=== PATIENT | male | born 1945 | race Caucasian/White ===

== ENCOUNTER 2016-09-25 12:13 | Emergency (ER) | payer MEDICARE, OTHER ==
[2016-09-25 12:19] VITALS: BP 168/82
[2016-09-25] MEDS ORDERED: CEPHALEXIN 250 MG CAPSULE PO STA (12:38)
[2016-09-25] MEDS ORDERED: TETANUS/DIPHTHERIA/PERTUSSIS 0.5 ML SYRINGE IM ONE ×2 (12:39→12:41)
[2016-09-25] MEDS ORDERED: CEPHALEXIN 250 MG CAPSULE PO ONE (12:41)
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
== END 2016-09-25 12:57 | disposition home or self-care (01) ==
LOC: ED 12:13
DX: L03.116 Cellulitis of left lower limb (principal); S80.812A Abrasion, left lower leg, initial encounter; V18.2XXA Unspecified pedal cyclist injured in noncollision transport accident in nontraffic accident, initial encounter; Z23 Encounter for immunization; R03.0 Elevated blood-pressure reading, without diagnosis of hypertension; Z79.82 Long term (current) use of aspirin
CPT/HCPCS: 90471; 90715; 99283; A9270

== ENCOUNTER 2016-09-27 11:28 | Emergency (ER) | payer MEDICARE, OTHER ==
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
[2016-09-27 13:15] VITALS: BP 151/95
--- NOTE | 2016-09-27 17:08 | Ultrasound Report ---
LEFT LEG VENOUS DUPLEX: 09/27/2016 CLINICAL INDICATION: Leg swelling after injury. TECHNIQUE: Real-time sonographic vascular imaging was performed by the bowling pin setters installer through the left lower extremity utilizing both color flow and Doppler spectral analysis. Multiple hardware supplies sales representative sta tic images were saved for review. FINDINGS: A left lower extremity venous sonogram is performed revealing the common femoral, superfic ial femoral, profunda femoris, and popliteal veins to be adequately visualized without intraluminal d efects. There is normal venous compression, augmentation, phasicity, and spontaneity of venous flow. In the calf, the visualized more cephalad portions of posterior tibial and peroneal veins are gross ly compressible, without filling defects. Scanning of the anterior calf in the region of swelling de monstrates a 5.7 x 4.4 x 0.8 cm hematoma. IMPRESSION: NO EVIDENCE OF DEEP VENOUS THROMBOSIS. JOB #: [id number] EXT JOB #:[id number]
== END 2016-09-27 13:35 | disposition home or self-care (01) ==
LOC: ED 11:28
DX: S80.12XD Contusion of left lower leg, subsequent encounter (principal); W22.8XXD Striking against or struck by other objects, subsequent encounter; M79.89 Other specified soft tissue disorders; Z85.46 Personal history of malignant neoplasm of prostate; Z90.79 Acquired absence of other genital organ(s); Z79.82 Long term (current) use of aspirin
CPT/HCPCS: 99283

== ENCOUNTER 2023-06-22 13:53 | Outpatient (CLI) | payer MEDICARE ==
[2023-06-22 15:36] LABS: CALCIUM 9.5 mg/dL (8.5-10.3); POTASSIUM 4.1 mmol/L (3.5-4.5)
== END 2023-06-22 13:54 | disposition home or self-care (01) ==
LOC: LAB 13:53
PROVIDERS: ATTEND Student in an Organized Health Care Education/Training Program
DX: I49.9 Cardiac arrhythmia, unspecified (principal)
CPT/HCPCS: 36415; 80048

== ENCOUNTER 2023-09-27 07:38 | Emergency (ER) | payer MEDICARE ==
--- NOTE | 2023-09-27 08:14 | ED Physician Documentation ---
PD HPI URI - Stated complaint Stated Complaint: COUGH,FEVERISH,CONGESTION - Chief complaint Chief Complaint: Resp - History obtained from History obtained from: Patient - Additional information Additional information: Patient is a 78-year-old male with a history of hypertension presenting for evaluation of 1 week of productive cough of white sputum. Patient reports feeling a lot of congestion in his nose. His cough is worse at night. He denies fever. No chest pain or shortness of air or abdominal symptoms. Denies recent travel or known sick contacts. He has tried an [id number] cough m edication without any significant improvement. He has not taken a COVID test. Review of Systems Constitutional: denies: Fever Nose: reports: Congestion Cardiac: denies: Chest pain / pressure Respiratory: reports: Cough. denies: Dyspnea GI: denies: Abdominal Pain PD PAST MEDICAL HISTORY - Past Medical History Past Medical History: Yes Cardiovascular: Hypertension Respiratory: None Neuro: Peripheral neuropathy Endocrine/Autoimmune: None GI: GERD, Diverticulitis : Other HEENT: None Psych: None Musculoskeletal: Osteoarthritis Derm: None Other Past Medical History: prostate cancer - Past Surgical History Past Surgical History: Yes General: Bowel surgery, Other Ortho: Knee replacement - Present Medications Home Medications: Ambulatory Orders Medication Instructions Recorded Confirmed Atorvastatin Calcium 40 mg PO DAILY 09/27/23 09/27/23 Azelastine HCl 137 mcg NS BID 09/27/23 09/27/23 Fluoxetine HCl [Prozac] 20 mg PO DAILY 09/27/23 09/27/23 Loratadine [Claritin] 10 mg PO DAILY 09/27/23 09/27/23 [place]-3/Dha/Epa/Fish Oil [Fish Oil 1 each PO DAILY 09/27/23 09/27/23 1,000 mg Softgel] Omeprazole 20 mg PO BID 09/27/23 09/27/23 Pregabalin [Lyrica] 25 mg PO HS 09/27/23 09/27/23 Pregabalin [Lyrica] 150 mg PO BID 09/27/23 09/27/23 Psyllium [Metamucil] 1 packet PO TID 09/27/23 09/27/23 Telmisartan 80 mg PO DAILY 09/27/23 09/27/23 amLODIPine [Norvasc] 5 mg PO DAILY 09/27/23 09/27/23 guaiFENesin/CODEINE [Robitussin AC] 5 ml PO Q6H PRN #100 ml 09/27/23 hydroCHLOROthiazide [Hydrodiuril] 25 mg PO DAILY 09/27/23 09/27/23 - Allergies Allergies/Adverse Reactions: Allergies Allergy/AdvReac Type Severity Reaction Status Date / Time No Known Drug Allergies Allergy Verified 09/27/23 07:42 - Social History Does the pt smoke?: No Smoking Status: Former smoker Does the pt drink ETOH?: No Does the pt have substance abuse?: No - Immunizations Immunizations are current?: Yes PD ED PE NORMAL - General General: Alert and oriented X 3, No acute distress, Well developed/nourished - HEENT HEENT: Atraumatic, Moist mucous membranes, Pharynx benign - Neck Neck: Supple, no meningeal sign - Cardiac Cardiac: RRR, Strong equal pulses - Respiratory Respiratory: No respiratory distress, Clear bilaterally - Abdomen Abdomen: Soft, Non tender, Non distended - Derm Derm: Warm and dry - Neuro Neuro: Normal speech Results - Vitals Vitals: Vital Signs - 24 hr 09/27/23 09/27/23 07:43 08:58 Temperature 36.4 C L 36.4 C L Heart Rate 61 55 L Respiratory 18 16 Rate Blood Pressure 152/84 H 115/71 O2 Saturation 97 95 Oxygen O2 Source Room air - Labs Labs: Laboratory Tests 09/27/23 07:56 Nasal Adenovirus (PCR) NOT DETECTED Nasal B. parapertussis DNA (PCR) NOT DETECTED Nasal Coronavir 229E PCR NOT DETECTED Nasal Coronavir HKU1 PCR NOT DETECTED Nasal Coronavir NL63 PCR NOT DETECTED Nasal Coronavir OC43 PCR NOT DETECTED Nasal Enterovir/Rhinovir PCR DETECTED A Nasal Influenza B PCR NOT DETECTED Nasal Influenza A PCR NOT DETECTED Nasal Parainfluen 1 PCR NOT DETECTED Nasal Parainfluen 2 PCR NOT DETECTED Nasal Parainfluen 3 PCR NOT DETECTED Nasal Parainfluen 4 PCR NOT DETECTED Nasal RSV (PCR) NOT DETECTED Nasal B.pertussis DNA PCR NOT DETECTED Nasal C.pneumoniae (PCR) NOT DETECTED Iván Human Metapneumo PCR NOT DETECTED Nasal M.pneumoniae (PCR) NOT DETECTED Nasal SARS-CoV-2 (PCR) NOT DETECTED PD Medical Decision Making - ED course Complexity details: reviewed results, d/w patient ED course: Patient presenting with cough and congestion for the past 1 week. Vital signs are stable. Lung sounds are clear. Chest x-ray which I reviewed is negative for pneumonia. Patient counseled that his symptoms are likely viral in nature and we discussed options for treatment including cough medication as well as saline spray in the nose to help loosen congestion. Respiratory swab was obtained and it did result positive for rhinovirus. Patient is otherwise well- appearing and counseled on concerning symptoms to return for. Departure - Departure Disposition: 01 Home, Self Care Clinical Impression: Upper respiratory infection Condition: Stable Instructions: ED Viral Syndrome Prescriptions: guaiFENesin/CODEINE [Robitussin AC] 5 ml PO Q6H PRN #100 ml PRN Reason: Cough Comments: Your respiratory panel is pending. This will check for COVID, influenza, RSV and a number of other common cold viruses. We will notify you if it is positive for COVID. Otherwise you can check the patient portal for your results. You should quarantine from others until you know your COVID result. Please continue with acetaminophen or ibuprofen as needed for fevers and body aches, plenty of fluids/hydration and rest. Return to the ER with any worsening symptoms such as difficulty breathing or vomiting. Your chest x-ray does not show signs of pneumonia. I would recommend using [id number] saline sprays in the nose to help loose n congestion as this will likely help your cough. I also sent a cough medication to the [facility] pharmacy. This does contain codeine which can make you feel sleepy or drowsy so I would not recommend driving while taking this medication. Forms: PCP List Discharge Date/Time: 09/27/23 08:59
--- NOTE | 2023-09-27 08:22 | XRAY Report ---
PROCEDURE: Chest 2V INDICATIONS: cough 1 week TECHNIQUE: 2 views of the chest were acquired. COMPARISON: None. FINDINGS: Surgical changes and devices: None. Lungs and pleura: No pleural effusions or pneumothorax. Lungs are clear. Mediastinum: Mediastinal contours appear normal. Heart size is normal. Bones and chest wall: No suspicious bony lesions. Overlying soft tissues appear unremarkable. IMPRESSION: No acute cardiopulmonary process. Reviewed by: Tyler Spain MD on 09/27/2023 8:20 AM PDT Approved by: Tyler Spain MD on 09/27/2023 8:20 AM PDT Station ID: [id number]
[2023-09-27 08:58] LABS: B. PARAPERTUSSIS- RESP PCR PAN NOT DETECTED; B. PERTUSSIS- RESP PCR PANEL NOT DETECTED; C. PNEUMONIAE- RESP PCR PANEL NOT DETECTED; CORONAVIRUS 229E-RESP PCR NOT DETECTED; CORONAVIRUS HKU1-RESP PCR NOT DETECTED; CORONAVIRUS NL63-RESP PCR NOT DETECTED; CORONAVIRUS OC43-RESP PCR NOT DETECTED; HUMAN METAPNEUMOVIRUS NOT DETECTED; INFLUENZA A- RESP PCR PANEL NOT DETECTED; INFLUENZA B - RESP PCR PANEL NOT DETECTED; M. PNEUMONIAE- RESP PCR PANEL NOT DETECTED; PARAINFLUENZA VIRUS 1 NOT DETECTED; PARAINFLUENZA VIRUS 2 NOT DETECTED; PARAINFLUENZA VIRUS 3 NOT DETECTED; PARAINFLUENZA VIRUS 4 NOT DETECTED; RHINOVIRUS/ENTEROVIRUS DETECTED; RSV- RESP PCR PANEL NOT DETECTED; SARS-CoV-2 -RESP PCR PANEL NOT DETECTED
[2023-09-27 09:07] VITALS: BP 115/71; O2SAT 95
== END 2023-09-27 08:59 | disposition home or self-care (01) ==
LOC: ED 07:38
DX: J06.9 Acute upper respiratory infection, unspecified (principal); I10 Essential (primary) hypertension; G62.9 Polyneuropathy, unspecified; Z85.46 Personal history of malignant neoplasm of prostate; Z79.899 Other long term (current) drug therapy
CPT/HCPCS: 87633; 99283; 99284